=== PATIENT | female | born 1935 | race Caucasian/White ===

== ENCOUNTER → 2018-01-07 | Outpatient (CLI) | payer MEDICARE ==
[~2018-01-07] MED LIST: BIOTIN10000 MC1 PO; FLONASEALLERGY NS; LEXAPRO20 MG PO; MULTIPLE VITAMI1 CAP PO; NAMENDA 10MG TA10 MG PO; OMNICEF 300MG300 MG PO; PROTONIX 40MG T40 MG PO; SANCTURA XR60 MG PO; SINGULAIR 110 MG/TAB PO; TAMBOCOR 1100 MG/TAB PO; TOPROL XL 25MG25 MG PO; TYLENOL 500MG500 MG PO; ZYRTEC ALLERGY10 MG PO
[2018-01-07 20:34] LABS: COLLECTION METHOD CLEAN CATCH
[2018-01-07 20:41] LABS: MUCOUS Present /lpf; PH 5 (5-8); SQUAMOUS EPITHELIAL 0-2 /hpf; URINE APPEARANCE Cloudy; URINE BACTERIA Rare /hpf; URINE BILIRUBIN Negative (NEGATIVE); URINE BLOOD Negative (NEGATIVE); URINE COLOR Yellow; URINE GLUCOSE Negative (NEGATIVE); URINE KETONE Negative (NEGATIVE); URINE LEUKOCYTE ESTERASE 1+ (NEGATIVE); URINE NITRATE Negative (NEGATIVE); URINE PROTEIN(semi-quant) 2+ (NEGATIVE); URINE RBC 0-2 /hpf; URINE UROBILINOGEN Negative (NEGATIVE)
== END ==
LOC: ZCOL.LAB 20:22 → MC.RAD 02-03 13:40
PROVIDERS: Family Medicine
DX: R30.0 Dysuria (principal)

== ENCOUNTER 2018-01-09 09:01 | Emergency (ER) | payer MEDICARE, BC ==
[~2018-01-09] VITALS: Ht 170.2 cm; Wt 71.8 kg
[2018-01-09] MEDS ORDERED: BIOTIN10000 MC1 PO (09:17)
[2018-01-09] MEDS ORDERED: MULTIPLE VITAMI1 CAP PO (09:17)
[2018-01-09] MEDS ORDERED: OMNICEF 300MG300 MG PO (09:17)
[2018-01-09] MEDS ORDERED: TAMBOCOR 1100 MG/TAB PO (09:18)
[2018-01-09] MEDS ORDERED: LEXAPRO20 MG PO (09:18)
[2018-01-09] MEDS ORDERED: FLONASEALLERGY NS (09:19)
[2018-01-09] MEDS ORDERED: NAMENDA 10MG TA10 MG PO (09:19)
[2018-01-09] MEDS ORDERED: TOPROL XL 25MG25 MG PO (09:19)
[2018-01-09] MEDS ORDERED: SANCTURA XR60 MG PO (09:20)
[2018-01-09] MEDS ORDERED: SINGULAIR 110 MG/TAB PO (09:20)
[2018-01-09] MEDS ORDERED: PROTONIX 40MG T40 MG PO (09:20)
[2018-01-09] MEDS ORDERED: TYLENOL 500MG500 MG PO (09:29)
[2018-01-09] MEDS ORDERED: ZYRTEC ALLERGY10 MG PO (09:29)
[2018-01-09 09:39] LABS: BASO % 0.4 % (0.0-2.0); GRAN # 8.3 (1.4-6.5); GRAN % 88.2 % (42.2-75.2); HEMOGLOBIN 11.8 g/dl (12.5-16.0); LYMPH # 0.4 (1.2-3.4); LYMPH % 4.6 % (20.0-51.0); MEAN CELL VOLUME 96 fl (80.0-100.0); MEAN CORPUSCULAR HEMOGLOBIN 32 pg (27.0-31.0); MEAN CORPUSCULAR HGB CONC 33 g/dl (33.0-37.0); MEAN PLATELET VOLUME 9.7 fl (7.4-10.4); MONO # 0.6 (0.1-0.6); MONO % 6.4 % (1.7-9.3); PLATELET COUNT 157 K/mm3 (130-400); RED BLOOD COUNT 3.75 M/mm3 (4.10-5.30); REDCELL DISTRIBUTION WIDTH-CV 12.6 % (11.5-14.5)
[2018-01-09 09:47] LABS: BILIRUBIN,TOTAL 0.9 mg/dL (0.0-1.0); CALCIUM 8.7 mg/dL (8.4-10.2); CREATININE, serum 0.93 mg/dL (0.52-1.25); POTASSIUM 3.7 mmol/L (3.4-5.0); TOTAL PROTEIN 7.1 gm/dL (6.4-8.2)
[2018-01-09 09:49] LABS: HEMATOCRIT 35.9 % (37.0-47.0)
[2018-01-09 10:33] VITALS: TEMP 99.9
[2018-01-09 12:42] VITALS: BP 137/84; PULSE 79
== END 2018-01-09 12:42 | disposition home or self-care (01) ==
LOC: COL.ER 09:01
PROVIDERS: Family Medicine
DX: N39.0 Urinary tract infection, site not specified (principal); F03.90 Unspecified dementia, unspecified severity, without behavioral disturbance, psychotic disturbance, mood disturbance, and anxiety
CPT/HCPCS: J0696; J7030

== ENCOUNTER → 2018-01-27 | Outpatient (CLI) | payer MEDICARE, BC | LOC: COL.RAD 07:30 | DX: S22.070G Wedge compression fracture of T9-T10 vertebra, subsequent encounter for fracture with delayed healing (principal); M48.04 Spinal stenosis, thoracic region ==

== ENCOUNTER 2018-02-05 11:17 | Outpatient (CLI) | payer MEDICARE, BC ==
[~2018-02-05] VITALS: Ht 170.2 cm; Wt 54.9 kg
[2018-02-05] VITALS (8 sets, daily range): BP systolic 128–178; BP diastolic 64–85; PULSE 64–73; TEMP 98.5
[2018-02-05] MEDS ORDERED: CEPHALEXIN500 M1 PO (12:10)
[2018-02-05] MEDS ORDERED: CALCIUM-MAGNES1 EAC1 PO (12:13)
[2018-02-05] MEDS ORDERED: ULTRAM 50MG TAB50 MG PO (12:15)
== END 2018-02-05 17:58 | disposition home or self-care (01) ==
LOC: COL.CAR 11:17
DX: S22.080A Wedge compression fracture of T11-T12 vertebra, initial encounter for closed fracture (principal); Z90.710 Acquired absence of both cervix and uterus; Z96.642 Presence of left artificial hip joint; Z88.8 Allergy status to other drugs, medicaments and biological substances
CPT/HCPCS: J2250; J3010; J7120

== ENCOUNTER → 2018-03-16 | Emergency (ER) | payer MEDICARE, BC ==
[~2018-03-16] VITALS: Ht 160 cm; Wt 52.3 kg
[~2018-03-16] MED LIST changes: +CALCIUM-MAGNES1 EAC1 PO; +CEPHALEXIN500 M1 PO; +ULTRAM 50MG TAB50 MG PO
[2018-03-16 10:37] VITALS: TEMP 98
[2018-03-16 13:30] VITALS: BP 147/66; PULSE 85
== END ==
LOC: COL.ER 10:30
DX: S30.0XXA Contusion of lower back and pelvis, initial encounter (principal); F03.90 Unspecified dementia, unspecified severity, without behavioral disturbance, psychotic disturbance, mood disturbance, and anxiety; Z91.81 History of falling; Z79.51 Long term (current) use of inhaled steroids; W01.0XXA Fall on same level from slipping, tripping and stumbling without subsequent striking against object, initial encounter; Y92.129 Unspecified place in nursing home as the place of occurrence of the external cause; Y93.E1 Activity, personal bathing and showering

== ENCOUNTER 2019-09-13 15:54 | Inpatient (IN) | payer MEDICARE, BC ==
[~2019-09-13] VITALS: Ht 170.2 cm; Wt 58.5 kg
[2019-09-13 15:55] VITALS: BP 148/65; PULSE 71; TEMP 97.5
[2019-09-13] MEDS ORDERED: REMERON 15M15 MG/TA1 PO (16:05)
[2019-09-13] MEDS ORDERED: MYLANTA 150 ML150 M1 PO (16:05)
[2019-09-13] MEDS ORDERED: SEROQUEL 2525 MG/TAB PO (16:07)
[2019-09-13] MEDS ORDERED: GUAICON DMS PO (16:09)
[2019-09-13] MEDS ORDERED: TYLENOL 325MG325 MG PO (16:10)
[2019-09-13] MEDS ORDERED: TYLENOL SU650 MG/SUP RC (16:11)
[2019-09-13] MEDS ORDERED: TYLENOL 500MG500 MG PO (16:12)
[2019-09-13] MEDS ORDERED: DULCOLAX S10 MG/SUPP RC (16:13)
[2019-09-13] MEDS ORDERED: CETAPHIL COMPO480 ML TP (16:14)
[2019-09-13] MEDS ORDERED: IMODIUM A-D2 MG PO (16:17)
[2019-09-13] MEDS ORDERED: MIRALAX PA17 GM/Dose PO (16:17)
[2019-09-13] MEDS ORDERED: ASPERCREME1 EACH TP (16:18)
[2019-09-13] MEDS ORDERED: MILK OF MA400 MG/52 PO (16:19)
[2019-09-13 16:43] LABS: BASO % 0.5 % (0.0-2.0); EOS # 0.2 (0.0-0.7); EOS % 2.7 % (0-4.0); GRAN # 3.9 (1.4-6.5); GRAN % 68.9 % (42.2-75.2); HEMATOCRIT 37.3 % (37.0-47.0); HEMOGLOBIN 12.4 g/dl (12.5-16.0); LYMPH # 1.1 (1.2-3.4); LYMPH % 19.5 % (20.0-51.0); MEAN CELL VOLUME 96 fl (80.0-100.0); MEAN CORPUSCULAR HEMOGLOBIN 32 pg (27.0-31.0); MEAN CORPUSCULAR HGB CONC 33 g/dl (33.0-37.0); MONO # 0.5 (0.1-0.6); PLATELET COUNT 170 K/mm3 (130-400); RED BLOOD COUNT 3.87 M/mm3 (4.10-5.30); REDCELL DISTRIBUTION WIDTH-CV 12.6 % (11.5-14.5)
[2019-09-13 16:50] LABS: PROTHROMBIN TIME 11.3 SECONDS (9.7-12.8)
[2019-09-13 16:56] LABS: ALBUMIN 4.2 gm/dL (3.5-5.0); BILIRUBIN,TOTAL 0.6 mg/dL (0.0-1.0); CALCIUM 8.9 mg/dL (8.4-10.2); CREATININE, serum 0.87 (0.52-1.25); POTASSIUM 4.4 mmol/L (3.4-5.0); TOTAL PROTEIN 7.2 gm/dL (6.4-8.2)
[2019-09-13 17:03] LABS: PRE ALBUMIN 27.6 mg/dL (17.6-36.0)
--- NOTE | 2019-09-13 18:00 | NUR ---
16 MAORI STEVENSON CATHETER INSERTED VIA STERILE TECHNIQUE. CLOUDY, PALE YELLOW URINE RETURNED. UA COLLECTED AND SENT TO LAB. PERICARE PROVIDED. STAT LOCK TO LEFT LEG. TERENCE HOSE APPLIED TO LLE. SCD'S APPLIED TO BLE. POSITIVE PEDAL PULSES EQUAL BILATERALLY. CAP REFILL <3 SECONDS. CMS INTACT. IV FLUIDS INFUSING TO RIGHT WRIST IV VIA PUMP. CALL LIGHT WITHIN REACH. DINNER TRAY ORDERED. NO OTHER NEEDS AT THIS TIME.
--- NOTE | 2019-09-13 18:40 | NUR ---
ANESTHESIA PAGED AND NOTIFIED OF SURGICAL CONSULT.
--- NOTE | 2019-09-13 18:56 | NUR ---
REPORT GIVEN TO ASHELY TONEY.
[2019-09-13 19:09] LABS: COLLECTION METHOD CATHETER
[2019-09-13 19:28] LABS: BUDDING YEAST Present /hpf; MUCOUS Present /lpf; PH 7 (5-8); SQUAMOUS EPITHELIAL None Seen /hpf; URINE APPEARANCE Hazy; URINE BACTERIA Occasional /hpf; URINE BILIRUBIN Negative (NEGATIVE); URINE BLOOD Negative (NEGATIVE); URINE COLOR Yellow; URINE GLUCOSE Negative (NEGATIVE); URINE KETONE Negative (NEGATIVE); URINE LEUKOCYTE ESTERASE Trace (NEGATIVE); URINE NITRATE Positive (NEGATIVE); URINE PROTEIN(semi-quant) Negative (NEGATIVE); URINE UROBILINOGEN Negative (NEGATIVE)
[2019-09-13 20:00] VITALS: BP 141/81; PULSE 87; TEMP 97.8
--- NOTE | 2019-09-13 20:36 | NUR ---
Received report from ASHELY Leiva. Pt is currently lying in bed. Pt bed alarm has gone off serval time. Pt wants to get out of bed. Pt was asked if she has to have a bowel movement she stated no. Pt is confused. Pt was redirected and was informed that she has a catheter in place. Pt was also given her night medications and Tylenol at this time. Patient stated she's hurting when she moves her leg. Pt lungs sounds were clear, her heart rate was normal S1 and S2 sounds. Pt bowel sounds were hypoactive. Pt is now resting in bed and she was given a warm blanket for comfort. Pt has her call light within reach and will continue to monitor to make sure she not trying to exit her bed. Bed alarm is on at this time.
[2019-09-13 21:00] VITALS: BP 106/69; PULSE 78; TEMP 98.9
[2019-09-14] VITALS (14 sets, daily range): BP systolic 94–183; BP diastolic 62–112; PULSE 71–101; TEMP 97.5–98.9
--- NOTE | 2019-09-14 00:51 | NUR ---
Pt daughter called who is the pt DOPA and we were able to obtain the consent for surgery. Pt is currently sleeping in bed. Pt did wake up for vitals but went back to sleep.
--- NOTE | 2019-09-14 02:40 | NUR ---
Pt was beginning to try to get out of bed. Pt was also rubbing her hip and complainting of pain. Pt was given Tylenol and a small sip of water at this time. Pt is now lying in bed with call light within reach and bed in lowest position and alarm on.
[2019-09-14 06:24] LABS: HEMOGLOBIN 11.8 g/dl (12.5-16.0); MEAN CELL VOLUME 98 fl (80.0-100.0); MEAN CORPUSCULAR HEMOGLOBIN 32 pg (27.0-31.0); MEAN CORPUSCULAR HGB CONC 33 g/dl (33.0-37.0); MEAN PLATELET VOLUME 9.3 fl (7.4-10.4); PLATELET COUNT 146 K/mm3 (130-400); RED BLOOD COUNT 3.65 M/mm3 (4.10-5.30); REDCELL DISTRIBUTION WIDTH-CV 12.4 % (11.5-14.5)
[2019-09-14 06:32] LABS: CALCIUM 8.6 mg/dL (8.4-10.2); CREATININE, serum 0.75 (0.52-1.25); MAGNESIUM 2.2 mg/dL (1.6-2.3); POTASSIUM 4.1 mmol/L (3.4-5.0)
[2019-09-14 06:33] LABS: HEMATOCRIT 35.7 % (37.0-47.0)
--- NOTE | 2019-09-14 07:12 | NUR ---
Reported off to ASHELY Santos. Pt is lying in be with call light within reach and bed in lowest positon and alarm on.
--- NOTE | 2019-09-14 07:34 | NUR ---
REPORT FROM DAWNA LUND.
--- NOTE | 2019-09-14 09:00 | NUR ---
PT RESTING IN BED, PLAN ON SURGERY THIS AM. WITH DR. OSEI FOR HIP PINNING. CONSENT SIGNED ON CHART. PT RESTING QUIETLY AT THIS TIME.
--- NOTE | 2019-09-14 11:18 | NUR ---
PT TO SURGERY @ 1153.
--- NOTE | 2019-09-14 11:49 | NUR ---
Workers Compensation Claims Specialist contacted patient's daughter/SHAWNA Christie (ph#[phone]) to discuss discharge planning as patient has dementia. Per Shahnaz, patient lives at [facility] and has been there about two years. Patient sees Dr. Hernandez for primary care and uses a walker or wheelchair for ambulation. Patient does receive some assistance as needed with ADLS at [facility]. Shahnaz reports the plan is for patient to return to [facility]. STEFFANY contacted Jessica at [facility] who advised patient is from their special care unit at [facility]. Due to COVID 19 pandemic, patient will discharge to the [facility] for skilled care instead of skilled care at [place]. STEFFANY faxed referral to Jessica at [facility]. SW to continue to follow.
--- NOTE | 2019-09-14 12:52 | NUR ---
PT TO ROOM 326 PER BED WITH INOCENCIO LUND PACU@1200. PT IS DROWSEY BUT AROUSEABLE. DRESSING TO RIGHT HIP CDI WITH AQUACEL OVER INCISION. IV TO PUMP PER ORDERS.
--- NOTE | 2019-09-14 15:55 | NUR ---
PT RESTING QUIETLY AFTER ULTRAM. VSS IMPROVED.
--- NOTE | 2019-09-14 18:50 | NUR ---
report to Su LUND.
[2019-09-15] VITALS (7 sets, daily range): BP systolic 111–165; BP diastolic 31–103; PULSE 67–104; TEMP 97.6–103
--- NOTE | 2019-09-15 04:27 | NUR ---
Patient has rested well throughout the night. Albarran draining clear, yellow urine. Dressing to right hip clean, dry, and intact. Patient up to the bedside commode via 2 assist from staff. Patient then complained of a lot of pain to the right hip. PRN [place] given, as it wasn't time for Ultram yet, and this was effective for pain relief. Patient was reoriented frequently about where she was, and why she was here. Patient's daughter, Shahnaz, called for an update and this was provided for her. States she wants to talk with her in the morning. Vital signs stable. Will continue to monitor.
[2019-09-15 06:13] LABS: BASO % 0.3 % (0.0-2.0); EOS # 0.2 (0.0-0.7); EOS % 2.8 % (0-4.0); GRAN % 71.8 % (42.2-75.2); HEMOGLOBIN 11.6 g/dl (12.5-16.0); LYMPH # 1.2 (1.2-3.4); LYMPH % 17.5 % (20.0-51.0); MEAN CELL VOLUME 98 fl (80.0-100.0); MEAN CORPUSCULAR HEMOGLOBIN 32 pg (27.0-31.0); MEAN CORPUSCULAR HGB CONC 33 g/dl (33.0-37.0); MEAN PLATELET VOLUME 9.4 fl (7.4-10.4); MONO # 0.5 (0.1-0.6); MONO % 7.2 % (1.7-9.3); PLATELET COUNT 170 K/mm3 (130-400); RED BLOOD COUNT 3.59 M/mm3 (4.10-5.30); REDCELL DISTRIBUTION WIDTH-CV 12.3 % (11.5-14.5)
[2019-09-15 06:16] LABS: HEMATOCRIT 35.3 % (37.0-47.0)
[2019-09-15 06:27] LABS: CALCIUM 8.7 mg/dL (8.4-10.2); CREATININE, serum 0.63 (0.52-1.25); POTASSIUM 3.6 mmol/L (3.4-5.0)
--- NOTE | 2019-09-15 09:04 | NUR ---
PT UP WORKING WITH THERAPY AT THIS TIME. PT BASELINE CONFUSION FROM [facility].
--- NOTE | 2019-09-15 10:34 | NUR ---
Compressor Engineer contacted Jessica at [facility] and faxed updates. SW contacted patient's daughter, Shahnaz and left a message. Per Hospitalist, patient may be ready for discharge tomorrow. SW to continue to follow.
--- NOTE | 2019-09-15 12:04 | NUR ---
First visit from the hose builder. No needs right now.
--- NOTE | 2019-09-15 14:01 | NUR ---
RA SPO2 80% 3 LPM NC 91%
--- NOTE | 2019-09-15 17:22 | NUR ---
STEVENSON CATHETER DISCONTINUED THIS PM. PT TOLERATED WELL.
--- NOTE | 2019-09-15 19:00 | NUR ---
Received report from ASHELY Santos. Pt glenroynly lying in bed with her call light within reach and her bed in lowest position.
--- NOTE | 2019-09-15 20:27 | NUR ---
I was informed by the aide that the pt has a temp of 103. I went in to assess the pt and had the pt do the IS a couple of times. Temp did go down to 102.7 at this time. Pt was given Tylenol at this time. Will follow up to see if the temperature improves. Pt has her call light within reach and her bed is in lowest position.
--- NOTE | 2019-09-15 22:08 | NUR ---
Pt temperature was assessed at this time pt temperature was 99.4. Will continute to monitor pt. Pt is currently sleeping but woke up fine for me to do her temperature. Her call light is within reach and her bed is in lowest position and alarm is on.
[2019-09-16 01:11] VITALS: BP 124/60; PULSE 73; TEMP 97.6
[2019-09-16 04:24] VITALS: BP 139/78; PULSE 72; TEMP 97.6
[2019-09-16 06:05] LABS: BASO % 0.3 % (0.0-2.0); EOS # 0.1 (0.0-0.7); EOS % 1.8 % (0-4.0); GRAN # 4.6 (1.4-6.5); HEMOGLOBIN 10.1 g/dl (12.5-16.0); LYMPH # 0.6 (1.2-3.4); LYMPH % 10.2 % (20.0-51.0); MEAN CELL VOLUME 97 fl (80.0-100.0); MEAN CORPUSCULAR HEMOGLOBIN 32 pg (27.0-31.0); MEAN CORPUSCULAR HGB CONC 33 g/dl (33.0-37.0); MEAN PLATELET VOLUME 9.5 fl (7.4-10.4); MONO # 0.6 (0.1-0.6); MONO % 9.2 % (1.7-9.3); PLATELET COUNT 157 K/mm3 (130-400); RED BLOOD COUNT 3.15 M/mm3 (4.10-5.30); REDCELL DISTRIBUTION WIDTH-CV 12.3 % (11.5-14.5)
[2019-09-16 06:10] LABS: HEMATOCRIT 30.4 % (37.0-47.0)
[2019-09-16 06:20] LABS: CALCIUM 8.5 mg/dL (8.4-10.2); CREATININE, serum 0.66 (0.52-1.25); POTASSIUM 3.4 mmol/L (3.4-5.0)
[2019-09-16 07:34] VITALS: BP 139/67; PULSE 67; TEMP 98.2
--- NOTE | 2019-09-16 07:35 | NUR ---
Reported off to ASHELY Bhandari. Pt slept well during the night pt had one time where she was incontinent. Pt was cleaned using personal cleaning wipes. A breif was put on her at this time. Pt had no redness on her bottom. Pt was awake and getting ready for her breakfast at this time. Pt has her call light within reach and her bed is in lowest position.
[2019-09-16] MEDS ORDERED: ASPI325T6 PO (08:05)
[2019-09-16] MEDS ORDERED: OSCAL 500 TAB500 MG PO (08:07)
[2019-09-16] MEDS ORDERED: VITAMIN C500 MG PO (08:07)
[2019-09-16] MEDS ORDERED: DUO-KAPS1 CAP PO (08:08)
[2019-09-16] MEDS ORDERED: ULTRAM 50MG TAB50 MG PO (08:10)
[2019-09-16] MEDS ORDERED: OMNICEF 300MG300 MG PO (09:06)
[2019-09-16] MEDS ORDERED: DIFLUCAN 100MG100 MG PO (09:07)
[2019-09-16 11:47] VITALS: BP 157/84; BP 167/94; PULSE 93; TEMP 97.5
--- NOTE | 2019-09-16 16:10 | NUR ---
Command And Control Systems Integrator collaborated with MARCELLA Boggs who advised patient will not discharge today as she had a fever and new oxygen needs. Patient to be tested for COVID 19. SW contacted Jessica at [facility] and patient's daughter Shahnaz to provide update. SW to continue to follow.
[2019-09-16 16:40] VITALS: BP 146/76; PULSE 80; TEMP 97.8
[2019-09-16 19:32] VITALS: BP 100/62; PULSE 97; TEMP 98.6
--- NOTE | 2019-09-16 20:00 | NUR ---
Pt currently lying in bed. At the beginning of the shift pt was trying to exit the bed. Pt was telling us that she needed to go to [facility] because she had choir practice. Pt was very confused and it took a while to let the pt know that she was in the hospital in [place]. Pt lungs sounds did have some wheezing in the lower lobes. Pt continued to cough and after coughing they did shound clear. Pt heart sounds were normal S1 and S2 sounds. Pt had two IV sites on her right wrist, the IV site that was dated for yesterday was patent, but the IV in the lower forearm was removed at this time because it was not patent. So now pt currently has one IV site on her right forearm. Pt has a small skin tear on the front of her left leg that has a bandaid on it. Bandaid is clean, dry, and intact. Pt has her call light within reach and her bed is in lowest posiion with alarm on.
[2019-09-17 00:21] VITALS: BP 141/86; PULSE 94; TEMP 98.8
--- NOTE | 2019-09-17 01:33 | NUR ---
Pt has been trying to exit her bed. Pt did state that she was having pain in her leg. Pt was given Tylenol at this time. 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 Pt was getting up set because she couldn't get to the kitchen. Pt is safely in bed. Pt was repositioned at this time. Pt did ambulate to the bed side commode earlier. Pt has her call light within reach and her bed is in lowest positon.
[2019-09-17 04:14] VITALS: BP 110/92; PULSE 76; TEMP 98.6
--- NOTE | 2019-09-17 07:00 | NUR ---
Reported off to ASHELY Santos. Pt is currently lying in bed sleeping. Pt has her call light within reach and bed is in lowest position, alarm is on.
--- NOTE | 2019-09-17 07:28 | NUR ---
REPORT FROM DAWNA LUND.
[2019-09-17 08:05] LABS: BASO % 0.5 % (0.0-2.0); EOS # 0.2 (0.0-0.7); EOS % 3.2 % (0-4.0); GRAN % 71.9 % (42.2-75.2); LYMPH # 0.8 (1.2-3.4); LYMPH % 14.4 % (20.0-51.0); MEAN CELL VOLUME 96 fl (80.0-100.0); MEAN CORPUSCULAR HGB CONC 34 g/dl (33.0-37.0); MEAN PLATELET VOLUME 9.4 fl (7.4-10.4); MONO # 0.5 (0.1-0.6); MONO % 9.5 % (1.7-9.3); PLATELET COUNT 168 K/mm3 (130-400); REDCELL DISTRIBUTION WIDTH-CV 12.4 % (11.5-14.5)
[2019-09-17 08:08] LABS: HEMATOCRIT 28.9 % (37.0-47.0); HEMOGLOBIN 9.7 g/dl (12.5-16.0); MEAN CORPUSCULAR HEMOGLOBIN 32 pg (27.0-31.0)
[2019-09-17 08:10] VITALS: BP 149/56; PULSE 72; TEMP 97.9
[2019-09-17 08:11] LABS: CALCIUM 8.5 mg/dL (8.4-10.2); CREATININE, serum 0.66 (0.52-1.25); POTASSIUM 3.6 mmol/L (3.4-5.0)
[2019-09-17 11:50] VITALS: BP 128/66; PULSE 70; TEMP 98.7
--- NOTE | 2019-09-17 14:17 | NUR ---
The patient's COVID results are still pending. The patient is to tentatively discharge back to [facility] this weekend, once results are in. STEFFANY contacted and updated the patient's daughter, Shahnaz. Shahnaz verbalized understanding and is agreeable to this. STEFFANY contacted and faxed updates to Jessica at [facility]. SW to continue to follow.
[2019-09-17 16:05] VITALS: BP 136/66; PULSE 70; TEMP 99.1
[2019-09-17 19:50] VITALS: BP 154/68; PULSE 76; TEMP 98.4
[2019-09-18] VITALS (8 sets, daily range): BP systolic 85–146; BP diastolic 52–85; PULSE 67–88; TEMP 98–99.1
--- NOTE | 2019-09-18 05:50 | NUR ---
Patient is at confused at baseline. Aquacell dressing to right hip clean, dry in tact. Patient was able to ambulate into restrooom several times this shift. Patient was afebrile this shift. Katharinenet doesn't keep nasal cannula in nose, but sats remain at uper 80s to 90% on room air. [facility] once covid test comes back.
--- NOTE | 2019-09-18 08:00 | NUR ---
Patient in bed resting. Alert and oriented to self. Denies pain at this time. Assisted patient to sit up for breakfast. Aquacel to right hip is CDI. Jamie hose and SCD to BLE. Pedal pulses intact. Patient on 2L of O2 via NC. Denies further needs at this time.
[2019-09-18 08:45] LABS: CALCIUM 8.4 mg/dL (8.4-10.2); CREATININE, serum 0.59 (0.52-1.25); POTASSIUM 3.5 mmol/L (3.4-5.0)
[2019-09-18 08:47] LABS: BASO % 0.7 % (0.0-2.0); EOS # 0.2 (0.0-0.7); EOS % 3.5 % (0-4.0); GRAN # 3.2 (1.4-6.5); GRAN % 70.2 % (42.2-75.2); LYMPH # 0.7 (1.2-3.4); MEAN CELL VOLUME 96 fl (80.0-100.0); MEAN CORPUSCULAR HGB CONC 33 g/dl (33.0-37.0); MEAN PLATELET VOLUME 9.5 fl (7.4-10.4); MONO # 0.5 (0.1-0.6); MONO % 10.2 % (1.7-9.3); PLATELET COUNT 195 K/mm3 (130-400); RED BLOOD COUNT 2.91 M/mm3 (4.10-5.30); REDCELL DISTRIBUTION WIDTH-CV 12.3 % (11.5-14.5)
[2019-09-18 08:52] LABS: HEMOGLOBIN 9.3 g/dl (12.5-16.0); MEAN CORPUSCULAR HEMOGLOBIN 32 pg (27.0-31.0)
--- NOTE | 2019-09-18 09:00 | NUR ---
Patient sitting up in bed eating breakfast independently.
--- NOTE | 2019-09-18 15:42 | NUR ---
STEFFANY faxed over COVID results and updates for 09/17/2019-09/18/2019 to [facility].
--- NOTE | 2019-09-18 17:21 | NUR ---
Patient up to recliner, x1 stand by assist with walker. Denies further needs a this time.
--- NOTE | 2019-09-18 18:04 | NUR ---
Patient has done well throughout the day. Napping on and off. States she feels tired and was not able to sleep well last night. Currently up in recliner. Jamie olsen maintained to BLE. SCDs throughout the day when in bed. Denies further needs at this time. Denies pain at this time. Will report off to shift leader.
--- NOTE | 2019-09-18 19:57 | NUR ---
Report received. Assumed care for sap hana architect. A&Ox to person/place but conversation very confused. Assessment complete. VS have been stable. Denies nasuea. States she gets a "little winded" when ambulating but no shortness of breath at rest. Rating pain 4/10 to right hip-described as intermittent ache. States she does not need pain medication at this time. Fresh ice pack applied to site but immediately removed stating it was to cold and causes more pain. Right hip dressing CDI aleah. Pillow under for support. Ambulated to bathroom with one assist. Ambulation has greatly improved from last sap hana architect. TEDs/SCDs bilat. Call light in reach/bed alarm on. Will monitor.
[2019-09-19 03:40] VITALS: BP 95/80; PULSE 72; TEMP 97.6
--- NOTE | 2019-09-19 08:00 | NUR ---
Patient resting in bed at this time. Patient rouses easily and is alert and plesently confused per her baseline while awake. Patient denies pain or needs at this time, call light within reach.
--- NOTE | 2019-09-19 09:23 | NUR ---
STEFFANY made away of patient statues. DC orders prepared and faxed to [facility] . Awaiting transport time to [facility].
[2019-09-19 09:30] VITALS: BP 152/61; PULSE 88; TEMP 98.3
--- NOTE | 2019-09-19 11:50 | NUR ---
Discharge report called to recieving facility. INT removed, catheter intact, hemostasis achieved. Patient dressed and belongings gathered, patient transferred to recieving facility transportation.
== END 2019-09-19 12:20 | DRG 480 ==
LOC: SURG 15:54
PROVIDERS: Nurse Practitioner Family; Orthopaedic Surgery; Physician Assistant; ADMIT Hospitalist
PROC: 0QS834Z Reposition Right Femoral Shaft with Internal Fixation Device, Percutaneous Approach (ICD-10-PCS; principal; 2019-09-14 10:00)
DX: S72.001A Fracture of unspecified part of neck of right femur, initial encounter for closed fracture (principal); J96.01 Acute respiratory failure with hypoxia; J69.0 Pneumonitis due to inhalation of food and vomit; E87.1 Hypo-osmolality and hyponatremia; N39.0 Urinary tract infection, site not specified; F03.90 Unspecified dementia, unspecified severity, without behavioral disturbance, psychotic disturbance, mood disturbance, and anxiety; K21.9 Gastro-esophageal reflux disease without esophagitis; G89.29 Other chronic pain; M54.9 Dorsalgia, unspecified; F32.9 Major depressive disorder, single episode, unspecified; F41.9 Anxiety disorder, unspecified; D64.9 Anemia, unspecified; M19.90 Unspecified osteoarthritis, unspecified site; Z96.642 Presence of left artificial hip joint; K59.00 Constipation, unspecified; I48.0 Paroxysmal atrial fibrillation; Z66 Do not resuscitate; W19.XXXA Unspecified fall, initial encounter; B96.20 Unspecified Escherichia coli [E. coli] as the cause of diseases classified elsewhere; R50.9 Fever, unspecified; Z20.828 Contact with and (suspected) exposure to other viral communicable diseases; Z90.89 Acquired absence of other organs; Z90.710 Acquired absence of both cervix and uterus
CPT/HCPCS: 99222-AI; 99232-AI; 99233-AI; 99239; A9284; C1713; J0690; J0696; J2250; J2270; J2704; J2795; J7030; J7121

== ENCOUNTER 2019-12-19 11:48 | Emergency (ER) | payer MEDICARE, BC ==
[~2019-12-19] VITALS: Ht 170.2 cm; Wt 59.1 kg
[~2019-12-19 11:48] MED LIST changes: +ASPERCREME1 EACH TP; +ASPI325T6 PO; +CETAPHIL COMPO480 ML TP; +DIFLUCAN 100MG100 MG PO; +DULCOLAX S10 MG/SUPP RC; +DUO-KAPS1 CAP PO; +GUAICON DMS PO; +IMODIUM A-D2 MG PO; +MILK OF MA400 MG/52 PO; +MIRALAX PA17 GM/Dose PO; +MYLANTA 150 ML150 M1 PO; +OSCAL 500 TAB500 MG PO; +REMERON 15M15 MG/TA1 PO; +SEROQUEL 2525 MG/TAB PO; +TYLENOL 325MG325 MG PO; +TYLENOL SU650 MG/SUP RC; +VITAMIN C500 MG PO
[2019-12-19 11:49] VITALS: TEMP 98.3
[2019-12-19 12:18] LABS: BASO % 0.7 % (0.0-2.0); EOS # 0.1 (0.0-0.7); EOS % 1.6 % (0-4.0); GRAN # 2.9 (1.4-6.5); GRAN % 67.4 % (42.2-75.2); HEMATOCRIT 39.1 % (37.0-47.0); HEMOGLOBIN 12.6 g/dl (12.5-16.0); LYMPH % 23.3 % (20.0-51.0); MEAN CELL VOLUME 100 fl (80.0-100.0); MEAN CORPUSCULAR HEMOGLOBIN 32 pg (27.0-31.0); MEAN CORPUSCULAR HGB CONC 32 g/dl (33.0-37.0); MEAN PLATELET VOLUME 9.4 fl (7.4-10.4); MONO # 0.3 (0.1-0.6); MONO % 6.8 % (1.7-9.3); PLATELET COUNT 189 K/mm3 (130-400); RED BLOOD COUNT 3.93 M/mm3 (4.10-5.30); REDCELL DISTRIBUTION WIDTH-CV 12.4 % (11.5-14.5)
[2019-12-19 12:25] LABS: ALBUMIN 4.4 gm/dL (3.5-5.0); BILIRUBIN,TOTAL 0.6 mg/dL (0.0-1.0); CALCIUM 9.4 mg/dL (8.4-10.2); CREATININE, serum 0.72 (0.52-1.25); POTASSIUM 4.3 mmol/L (3.4-5.0); TOTAL PROTEIN 7.6 gm/dL (6.4-8.2)
[2019-12-19] MEDS ORDERED: ASPERCREME1 EACH TP (12:56)
[2019-12-19] MEDS ORDERED: NORCO 325 MG-51 TAB PO (13:09)
[2019-12-19 13:47] VITALS: BP 129/81; PULSE 66
== END 2019-12-19 14:39 | disposition home or self-care (01) ==
LOC: COL.ER 11:48
PROVIDERS: Emergency Medicine
DX: S09.90XA Unspecified injury of head, initial encounter (principal); S00.81XA Abrasion of other part of head, initial encounter; J98.11 Atelectasis; G30.9 Alzheimer's disease, unspecified; F02.80 Dementia in other diseases classified elsewhere, unspecified severity, without behavioral disturbance, psychotic disturbance, mood disturbance, and anxiety; Z88.6 Allergy status to analgesic agent; W19.XXXA Unspecified fall, initial encounter; Y92.129 Unspecified place in nursing home as the place of occurrence of the external cause

== ENCOUNTER → 2020-03-07 | Outpatient (CLI) | payer MEDICARE, BC ==
[~2020-03-07] MED LIST changes: +NORCO 325 MG-51 TAB PO
== END ==
LOC: COL.CARD 08:30
DX: R55 Syncope and collapse (principal)

== ENCOUNTER 2020-04-04 14:07 | Emergency (ER) | payer MEDICARE, BC ==
[~2020-04-04] VITALS: Ht 162.6 cm; Wt 59.1 kg
[2020-04-04 14:10] VITALS: TEMP 99.1
[2020-04-04 15:12] LABS: BASO % 0.7 % (0.0-2.0); EOS # 0.1 (0.0-0.7); EOS % 1.3 % (0-4.0); GRAN # 3.1 (1.4-6.5); GRAN % 67.6 % (42.2-75.2); HEMOGLOBIN 11.6 g/dl (12.5-16.0); LYMPH % 22.5 % (20.0-51.0); MEAN CELL VOLUME 96 fl (80.0-100.0); MEAN CORPUSCULAR HEMOGLOBIN 33 pg (27.0-31.0); MEAN CORPUSCULAR HGB CONC 34 g/dl (33.0-37.0); MEAN PLATELET VOLUME 8.8 fl (7.4-10.4); MONO # 0.4 (0.1-0.6); MONO % 7.7 % (1.7-9.3); PLATELET COUNT 188 K/mm3 (130-400); RED BLOOD COUNT 3.54 M/mm3 (4.10-5.30); REDCELL DISTRIBUTION WIDTH-CV 12.2 % (11.5-14.5)
[2020-04-04 15:17] LABS: PROTHROMBIN TIME 11.4 SECONDS (9.7-12.8)
[2020-04-04 15:21] LABS: HEMATOCRIT 34.1 % (37.0-47.0)
[2020-04-04 16:27] VITALS: BP 145/92; PULSE 79
== END 2020-04-04 16:27 | disposition home or self-care (01) ==
LOC: COL.ER 14:07
PROVIDERS: Physician Assistant
DX: S01.01XA Laceration without foreign body of scalp, initial encounter (principal); S50.02XA Contusion of left elbow, initial encounter; I10 Essential (primary) hypertension; F32.9 Major depressive disorder, single episode, unspecified; F41.9 Anxiety disorder, unspecified; K21.9 Gastro-esophageal reflux disease without esophagitis; Z90.89 Acquired absence of other organs; Z90.710 Acquired absence of both cervix and uterus; W01.198A Fall on same level from slipping, tripping and stumbling with subsequent striking against other object, initial encounter
CPT/HCPCS: J3010

== ENCOUNTER 2020-06-23 15:37 | Inpatient (IN) | payer MEDICARE, BC ==
[~2020-06-23] VITALS: Ht 162.6 cm; Wt 59.3 kg
[2020-06-23 17:16] LABS: HEMOGLOBIN 10.9 g/dl (12.5-16.0); MEAN CELL VOLUME 102 fl (80.0-100.0); MEAN CORPUSCULAR HEMOGLOBIN 33 pg (27.0-31.0); MEAN CORPUSCULAR HGB CONC 32 g/dl (33.0-37.0); MEAN PLATELET VOLUME 9.5 fl (7.4-10.4); PLATELET COUNT 192 K/mm3 (130-400); RED BLOOD COUNT 3.32 M/mm3 (4.10-5.30); REDCELL DISTRIBUTION WIDTH-CV 12.6 % (11.5-14.5)
[2020-06-23 17:25] LABS: ALANINE AMINOTRANSFERASE 16 U/L (4-34); ALBUMIN 3.7 gm/dL (3.5-5.0); ALKALINE PHOSPHATASE 84 U/L (50-136); ANION GAP 6 mmol/L (7-16); AST,SGOT 23 U/L (15-37); BILIRUBIN,TOTAL 0.7 mg/dL (0.0-1.0); BLOOD UREA NITROGEN 21 mg/dL (7-17); CALCIUM 8.6 mg/dL (8.4-10.2); CARBON DIOXIDE 29 mmol/L (22-30); CHLORIDE 100 mmol/L (98-107); CREATININE, serum 0.88 (0.52-1.25); GLUCOSE 102 mg/dL (74-106); POTASSIUM 4.1 mmol/L (3.4-5.0); SODIUM 136 mmol/L (137-145); TOTAL PROTEIN 6.6 gm/dL (6.4-8.2)
[2020-06-23 17:37] LABS: TROPONIN-I < 0.012 ng/mL (0.000-0.035)
[2020-06-23 17:42] LABS: COLLECTION METHOD CLEAN CATCH
[2020-06-23 17:52] LABS: AMORPHOUS CRYSTAL Present /uL; MUCOUS Present /lpf; PH 6 (5-8); SQUAMOUS EPITHELIAL None Seen /hpf; URINE APPEARANCE Cloudy; URINE BACTERIA Rare /hpf; URINE BILIRUBIN Negative (NEGATIVE); URINE BLOOD Negative (NEGATIVE); URINE COLOR Amber; URINE GLUCOSE Negative (NEGATIVE); URINE KETONE Negative (NEGATIVE); URINE LEUKOCYTE ESTERASE Negative (NEGATIVE); URINE NITRATE Negative (NEGATIVE); URINE PROTEIN(semi-quant) 2+ (NEGATIVE)
[2020-06-23 17:59] LABS: BAND 2 % (0-10); EOSINOPHIL 1 % (0-4); LYMPHOCYTE 6 % (20.0-51.0); NEUTROPHILS 88 % (42.0-75.2)
[2020-06-23 18:02] LABS: HYPOCHROMIA 1+; PLATELET ESTIMATE NORMAL (NORMAL)
[2020-06-23 19:58] LABS: ARTERIAL BLD GAS O2 SATURATION 88.6 % (92-100); ARTERIAL BLD GAS TCO2 CT 18.5; ARTERIAL BLOOD GAS BASE EXCESS -4.7 (-2-2); ARTERIAL BLOOD GAS HCO3 17.8 meq/L (22-26); ARTERIAL BLOOD GAS pH 7.51 (7.35-7.45)
[2020-06-23 20:00] LABS: ARTERIAL BLOOD GAS PCO2 22.8 mmHg (35-45); ARTERIAL BLOOD GAS PO2 48.1 mmHg (80-100)
[2020-06-23] MEDS ORDERED: TYLENOL 325MG325 MG PO (23:40)
[2020-06-23] MEDS ORDERED: REMERON 15M15 MG/TA1 PO (23:40)
[2020-06-23 23:57] VITALS: O2SAT 100
[2020-06-23 23:58] VITALS: O2SAT 100
[2020-06-24] VITALS (899 sets, daily range): BP systolic 92–152; BP diastolic 49–99; PULSE 53–86; TEMP 98.1–98.8; O2SAT 67–100
[2020-06-24 00:22] LABS: INR 1.2 (0.8-3.0); PROTHROMBIN TIME 13.8 SECONDS (9.7-12.8)
[2020-06-24 00:42] LABS: ARTERIAL BLD GAS O2 SATURATION 99.8 % (92-100); ARTERIAL BLD GAS TCO2 CT 27.1; ARTERIAL BLOOD GAS BASE EXCESS 2.7 (-2-2); ARTERIAL BLOOD GAS PCO2 35.4 mmHg (35-45); ARTERIAL BLOOD GAS pH 7.48 (7.35-7.45)
--- NOTE | 2020-06-24 02:19 | NUR ---
Patient arrived to the ICU at midnight. She was stable on her vent with slighly low blood pressure. Her blood pressure was trending down and I called Kandis CHUN when it was 96/48. She reccomended a 500 ml/hr fluid bolus x2. The patient is recieving the first 500 and blood pressure is currently 126/54. She has propofol and fentanyl running. Antibiotics has already been started. RSV and urine specimens were sent to lab. She is still being treated as a PUI. She is a DNR. OG tube is hooked to low intermittant suction. Dr Davi Sahu intercomed in and I gave him a quick update. His orders will be put in the patients chart.
[2020-06-24 04:44] LABS: ARTERIAL BLD GAS O2 SATURATION 95.3 % (92-100); ARTERIAL BLD GAS TCO2 CT 24.9; ARTERIAL BLOOD GAS BASE EXCESS -0.9 (-2-2); ARTERIAL BLOOD GAS HCO3 23.7 meq/L (22-26); ARTERIAL BLOOD GAS PO2 77.1 mmHg (80-100)
[2020-06-24 04:54] LABS: BASO % 0.2 % (0.0-2.0); EOS % 0.2 % (0-4.0); GRAN % 86.1 % (42.2-75.2); LYMPH # 0.6 (1.2-3.4); MEAN CELL VOLUME 99 fl (80.0-100.0); MEAN CORPUSCULAR HGB CONC 32 g/dl (33.0-37.0); MEAN PLATELET VOLUME 9.1 fl (7.4-10.4); MONO # 0.7 (0.1-0.6); MONO % 6.6 % (1.7-9.3); PLATELET COUNT 159 K/mm3 (130-400); RED BLOOD COUNT 2.88 M/mm3 (4.10-5.30); REDCELL DISTRIBUTION WIDTH-CV 12.7 % (11.5-14.5)
[2020-06-24 04:55] LABS: HEMATOCRIT 28.5 % (37.0-47.0); HEMOGLOBIN 9.2 g/dl (12.5-16.0); MEAN CORPUSCULAR HEMOGLOBIN 32 pg (27.0-31.0)
[2020-06-24 05:04] LABS: CALCIUM 7.4 mg/dL (8.4-10.2); CREATININE, serum 0.66 (0.52-1.25); MAGNESIUM 1.9 mg/dL (1.6-2.3); PHOSPHOROUS 2.5 mg/dL (2.5-4.5); POTASSIUM 3.5 mmol/L (3.4-5.0)
--- NOTE | 2020-06-24 06:52 | NUR ---
VENT CHARTING DOCUMENTED 0035 WAS PERFORMED AT 0335.
--- NOTE | 2020-06-24 08:30 | NUR ---
Recieved report from Krys LUND. Lines and tubes verified with first entry to room after report. Dr. Vang here to see pt. care plan reviewed with DR. Vang. New orders recieved and discussed.
--- NOTE | 2020-06-24 11:29 | NUR ---
Demand Planning Manager stopped through ICU and patient was airborne precaution and on ventilator so nothing needed at this time.
--- NOTE | 2020-06-24 11:30 | NUR ---
daughter Shahnaz called. Update given. Questions answered. Allowed Shahnaz to talk to her mother on speaker phone in the room.
--- NOTE | 2020-06-24 13:30 | NUR ---
Son called to speak with patient at this time. Allowed Son to talk to Mother over speakerphone. Reiterated that he could talk to her, but she would not be able to respond or talk back due to being on the ventilator.
--- NOTE | 2020-06-24 13:33 | NUR ---
STEFFANY spoke with SHAWNA Flores over the phone to conduct intake evaluation. Patient lives with daughter Brooks (P#[phone]) in [place]. Patient's son Thierry Chaudhry (P#[phone]) is patient's alternate DPOA-HC. Patient requires assistance with ADLS, and brooks hires CMAs/CNAs through private pay to assist in caregiving. Patient uses a walker for mobility presently. Patient's PCP is Dr Hernandez, and she uses [facility] for medications. Brooks reports that plan is for patient to return home with her upon discharge and resume care. Brooks confirmed understanding that this may change if patient's needs increase, and she is accepting of this. Brooks denies questions or concerns for SW at this time. SHAWNA asked STEFFANY to relay to nursing staff that patient requires regular reassurance and reorientation to stay calm. This was relayed to nursing staff. SHAWNA requested that she and her brother be able to call daily and let their mother hear their voices. STEFFANY relayed request to staff. Social work will continue to follow as needs progress.
[2020-06-25] VITALS (513 sets, daily range): BP systolic 115–163; BP diastolic 66–80; PULSE 47–78; TEMP 97.4–98.8; O2SAT 56–100
[2020-06-25 04:11] LABS: ARTERIAL BLD GAS O2 SATURATION 97.2 % (92-100); ARTERIAL BLD GAS TCO2 CT 22.3; ARTERIAL BLOOD GAS BASE EXCESS -5.3 (-2-2); ARTERIAL BLOOD GAS HCO3 20.9 meq/L (22-26); ARTERIAL BLOOD GAS PCO2 43.9 mmHg (35-45); ARTERIAL BLOOD GAS PO2 103.7 mmHg (80-100)
[2020-06-25 05:00] LABS: GRAN % 88.8 % (42.2-75.2); LYMPH # 0.2 (1.2-3.4); LYMPH % 3.8 % (20.0-51.0); MEAN CELL VOLUME 97 fl (80.0-100.0); MEAN CORPUSCULAR HGB CONC 33 g/dl (33.0-37.0); MEAN PLATELET VOLUME 9.4 fl (7.4-10.4); MONO # 0.3 (0.1-0.6); MONO % 6.7 % (1.7-9.3); PLATELET COUNT 161 K/mm3 (130-400); RED BLOOD COUNT 2.81 M/mm3 (4.10-5.30); REDCELL DISTRIBUTION WIDTH-CV 12.5 % (11.5-14.5)
[2020-06-25 05:01] LABS: HEMATOCRIT 27.2 % (37.0-47.0); HEMOGLOBIN 8.9 g/dl (12.5-16.0); MEAN CORPUSCULAR HEMOGLOBIN 32 pg (27.0-31.0)
[2020-06-25 05:11] LABS: CALCIUM 7.6 mg/dL (8.4-10.2); CREATININE, serum 0.54 (0.52-1.25); MAGNESIUM 2.3 mg/dL (1.6-2.3); PHOSPHOROUS 2.1 mg/dL (2.5-4.5); POTASSIUM 3.4 mmol/L (3.4-5.0)
--- NOTE | 2020-06-25 07:20 | NUR ---
RECEIVED REPORT FROM ASHELY AMBROCIO. PT RESTING EASILY ON CURRENT VENT SETTINGS: TV 400, PEEP 5, FIO2 30%, RR 18. FC PATENT AND DRAINING TO GRAVITY. VSS. INTERACTIVE PRODUCER IN PLACE. OGT IN PLACE WITH TF INFUSING AT 30 ML/HR. SEE GTT FLOWSHEET. PT OPENS EYES AND LOOKS AROUND WHEN SPOKEN TO.
--- NOTE | 2020-06-25 08:17 | NUR ---
RESIDUAL 37ML. TF INCREASED TO 45 ML/HR PER ORDERS.
[2020-06-25 14:25] LABS: ARTERIAL BLD GAS O2 SATURATION 96.9 % (92-100); ARTERIAL BLD GAS TCO2 CT 22.5; ARTERIAL BLOOD GAS BASE EXCESS -0.1 (-2-2); ARTERIAL BLOOD GAS HCO3 21.7 meq/L (22-26); ARTERIAL BLOOD GAS PCO2 27.1 mmHg (35-45); ARTERIAL BLOOD GAS PO2 81.9 mmHg (80-100); ARTERIAL BLOOD GAS pH 7.52 (7.35-7.45)
--- NOTE | 2020-06-25 15:05 | NUR ---
NOTIFIED DR KEITH ABOUT COVID PCR NEGATIVE. PHYSICIAN STATES OK TO DC PRECAUTIONS.
[2020-06-26] VITALS (715 sets, daily range): BP systolic 107–132; BP diastolic 48–60; PULSE 65–79; TEMP 97.5–98.5; O2SAT 84–100
[2020-06-26 05:02] LABS: ARTERIAL BLD GAS O2 SATURATION 95.7 % (92-100); ARTERIAL BLD GAS TCO2 CT 25.6; ARTERIAL BLOOD GAS BASE EXCESS 1.1 (-2-2); ARTERIAL BLOOD GAS HCO3 24.5 meq/L (22-26); ARTERIAL BLOOD GAS PCO2 34.5 mmHg (35-45); ARTERIAL BLOOD GAS PO2 75.2 mmHg (80-100); ARTERIAL BLOOD GAS pH 7.47 (7.35-7.45)
[2020-06-26 05:25] LABS: BASO % 0.1 % (0.0-2.0); GRAN # 7.9 (1.4-6.5); GRAN % 89.1 % (42.2-75.2); LYMPH # 0.2 (1.2-3.4); LYMPH % 2.7 % (20.0-51.0); MEAN CELL VOLUME 98 fl (80.0-100.0); MEAN CORPUSCULAR HGB CONC 33 g/dl (33.0-37.0); MEAN PLATELET VOLUME 9.3 fl (7.4-10.4); MONO # 0.6 (0.1-0.6); MONO % 6.8 % (1.7-9.3); PLATELET COUNT 199 K/mm3 (130-400); REDCELL DISTRIBUTION WIDTH-CV 12.9 % (11.5-14.5)
[2020-06-26 05:27] LABS: HEMATOCRIT 27.3 % (37.0-47.0); HEMOGLOBIN 8.9 g/dl (12.5-16.0); MEAN CORPUSCULAR HEMOGLOBIN 32 pg (27.0-31.0)
[2020-06-26 05:38] LABS: CALCIUM 7.7 mg/dL (8.4-10.2); CREATININE, serum 0.63 (0.52-1.25); MAGNESIUM 2.4 mg/dL (1.6-2.3); PHOSPHOROUS 2.5 mg/dL (2.5-4.5); POTASSIUM 4.2 mmol/L (3.4-5.0)
[2020-06-26 05:46] LABS: PRE ALBUMIN 12.6 mg/dL (17.6-36.0)
--- NOTE | 2020-06-26 06:30 | NUR ---
Patient was very agitated this morining during oral care, she had an otherwise very peaceful and uneventful night. The propofol remained at 30 and fentanyl at 75. Since she was very awake and even sitting completely up and agitated we decided to do the breathing trials then and there. RT Annetta said the patients volumes were satisfactory but she wasn't iniating enough breaths, it was around 9 or 10 breaths a minute. I then decided to lower the sedation by half as the patient was calming from her agitation but she remained 9 or 10 breaths a minute. She is resting now, her vitals are stable.
--- NOTE | 2020-06-26 19:14 | NUR ---
Report given to ASHELY Wiggins. Care relinquished at this time.
--- NOTE | 2020-06-26 19:34 | NUR ---
Received bedside report from ASHELY Smith. All medications verified and all questions answered. Patient on ventilator, review ventilator settings with day shift RN. VSS. Will resume care at this time.
[2020-06-26 20:37] LABS: ARTERIAL BLOOD GAS PCO2 39.7 mmHg (35-45); ARTERIAL BLOOD GAS pH 7.43 (7.35-7.45)
[2020-06-26 20:38] LABS: ARTERIAL BLD GAS O2 SATURATION 95.4 % (92-100); ARTERIAL BLOOD GAS BASE EXCESS 1.5 (-2-2); ARTERIAL BLOOD GAS HCO3 25.8 meq/L (22-26); ARTERIAL BLOOD GAS PO2 77.1 mmHg (80-100)
[2020-06-27] VITALS (556 sets, daily range): BP systolic 126–158; BP diastolic 60–76; PULSE 61–84; TEMP 97.4–99; O2SAT 73–100
[2020-06-27 04:47] LABS: ARTERIAL BLOOD GAS PCO2 41.9 mmHg (35-45); ARTERIAL BLOOD GAS pH 7.42 (7.35-7.45)
[2020-06-27 04:48] LABS: ARTERIAL BLD GAS O2 SATURATION 96.2 % (92-100); ARTERIAL BLOOD GAS BASE EXCESS 2.4 (-2-2); ARTERIAL BLOOD GAS PO2 81.3 mmHg (80-100)
[2020-06-27 05:22] LABS: MEAN CELL VOLUME 100 fl (80.0-100.0); MEAN CORPUSCULAR HGB CONC 32 g/dl (33.0-37.0); MEAN PLATELET VOLUME 9.3 fl (7.4-10.4); PLATELET COUNT 214 K/mm3 (130-400); RED BLOOD COUNT 2.82 M/mm3 (4.10-5.30); REDCELL DISTRIBUTION WIDTH-CV 13.1 % (11.5-14.5)
[2020-06-27 05:29] LABS: HEMATOCRIT 28.3 % (37.0-47.0); HEMOGLOBIN 9.1 g/dl (12.5-16.0); MEAN CORPUSCULAR HEMOGLOBIN 32 pg (27.0-31.0)
[2020-06-27 05:31] LABS: CREATININE, serum 0.59 (0.52-1.25); POTASSIUM 4.1 mmol/L (3.4-5.0)
--- NOTE | 2020-06-27 05:34 | NUR ---
ATTEMPTED WEANING PARAMETERS WITH PTS VENT SETTINGS THIS MORNING BUT SHE DID NOT BREATHE ON HER OWN. RN WILL LOWER SEDATION EVEN MORE AND WE WILL TRY AGAIN LATER.
--- NOTE | 2020-06-27 05:35 | NUR ---
Started sedation vacation at 0515. Propofol and fentanyl decreased in half. Propofol running at 5.6mls/hr and fentanyl running at 2.5mls/hr. Patient became restless with VSS but was unable to follow commands. Sedation vacation turned off at 0530.
[2020-06-27 06:18] LABS: BAND 5 % (0-10); LYMPHOCYTE 10 % (20.0-51.0); MYELOCYTE 1 % (0-0); NEUTROPHILS 81 % (42.0-75.2); PLATELET ESTIMATE NORMAL (NORMAL)
--- NOTE | 2020-06-27 10:03 | NUR ---
Associate Editor attended clinical rounds with the team and patient will not be extubated today. SW contacted patient's daughter, Shahnaz to touch base and introduce self. Shahnaz advised that Hospitalist has been keeping her updated on patient. SW will continue to follow.
--- NOTE | 2020-06-27 17:00 | NUR ---
While attempting weaning trial pt became restless and attempting to sit up. Pt moves all extremeties but will not follow commands. Pt's eyes open but not focusing on voice. Sedation increased. Will continue to monitor.
[2020-06-28] VITALS (478 sets, daily range): BP systolic 84–157; BP diastolic 42–74; PULSE 61–73; TEMP 97.7–98.8; O2SAT 72–100
[2020-06-28 04:39] LABS: ARTERIAL BLD GAS O2 SATURATION 96.5 % (92-100); ARTERIAL BLD GAS TCO2 CT 31.3; ARTERIAL BLOOD GAS BASE EXCESS 5.2 (-2-2); ARTERIAL BLOOD GAS HCO3 29.9 meq/L (22-26); ARTERIAL BLOOD GAS PO2 82.8 mmHg (80-100); ARTERIAL BLOOD GAS pH 7.44 (7.35-7.45)
[2020-06-28 05:18] LABS: MEAN CELL VOLUME 99 fl (80.0-100.0); MEAN CORPUSCULAR HGB CONC 33 g/dl (33.0-37.0); MEAN PLATELET VOLUME 8.8 fl (7.4-10.4); PLATELET COUNT 227 K/mm3 (130-400); RED BLOOD COUNT 2.93 M/mm3 (4.10-5.30); REDCELL DISTRIBUTION WIDTH-CV 12.9 % (11.5-14.5)
[2020-06-28 05:20] LABS: HEMATOCRIT 28.9 % (37.0-47.0); HEMOGLOBIN 9.4 g/dl (12.5-16.0); MEAN CORPUSCULAR HEMOGLOBIN 32 pg (27.0-31.0)
[2020-06-28 05:29] LABS: CALCIUM 8.3 mg/dL (8.4-10.2); CREATININE, serum 0.58 (0.52-1.25); POTASSIUM 3.4 mmol/L (3.4-5.0)
[2020-06-28 05:57] LABS: HYPOCHROMIA 1+; LYMPHOCYTE 21 % (20.0-51.0); MYELOCYTE 1 % (0-0); NEUTROPHILS 73 % (42.0-75.2); NUCLEATED RED BLOOD CELL 1 (0-6); PLATELET ESTIMATE NORMAL (NORMAL)
--- NOTE | 2020-06-28 06:13 | NUR ---
Patient was apnic and Xavier RT stated the patient was "apnic"
--- NOTE | 2020-06-28 06:27 | NUR ---
Patient had an uneventuful night. She is currently still sedated with propofol and fentanyl. Xavier RT and I tried conducting the breathing trial but the patient was apnic so RT stated the patient failed and resumed the vent. I will relay this to dayshift. Otherwise, the patient's vitals are stable. She is still on the tubefeeding at goal. She had one bowel movement.
--- NOTE | 2020-06-28 06:42 | NUR ---
PLACED PT ON A WEAN TRIAL AND IMMEDIATLY KICKED INTO APNEA VENTILATON. PT PLACED BACK ON DOCUMENTED SETTINGS GARETH WELL WITH NO DISTRESS NOTED AT THIS TIME
--- NOTE | 2020-06-28 17:00 | NUR ---
Dr. Griffin notified of the [facility]'s MAP being in the 50s. 1000 ml Bolus of NS orders received.
--- NOTE | 2020-06-28 21:26 | NUR ---
I recieved report from Sarah LUND. The patient's blood pressure was low, MAP high 50's and low 60's. She said the patient recieved a 1,000 L bolus of NS around 5PM. A few hours later, around 850PM the patient's blood pressure still remains low, with a MAP around 65. It was dwindling down and the MAP was 57 and I started a Levo drip, I took one last pressure as the drip was starting and the MAP was 52. I started the patient on 0.1mcg/kg/min and five minutes later the blood pressure was 149/74. I am titrating accordingly. The last blood pressure at 930pm is 108/55. All other vitals are stable and patient is resting. Propofol is at 10 mcg/kg/min and Fentanyl is 50mcg/hr.
[2020-06-29] VITALS (767 sets, daily range): BP systolic 101–168; BP diastolic 44–98; PULSE 79–120; TEMP 98–99; O2SAT 90–100
[2020-06-29 04:26] LABS: BASO % 0.4 % (0.0-2.0); EOS # 0.3 (0.0-0.7); EOS % 2.9 % (0-4.0); GRAN # 8.4 (1.4-6.5); GRAN % 75.8 % (42.2-75.2); LYMPH % 9.3 % (20.0-51.0); MEAN CELL VOLUME 102 fl (80.0-100.0); MEAN CORPUSCULAR HGB CONC 31 g/dl (33.0-37.0); MEAN PLATELET VOLUME 9.1 fl (7.4-10.4); MONO # 0.6 (0.1-0.6); MONO % 5.2 % (1.7-9.3); PLATELET COUNT 267 K/mm3 (130-400); RED BLOOD COUNT 2.95 M/mm3 (4.10-5.30)
[2020-06-29 04:28] LABS: HEMATOCRIT 30.1 % (37.0-47.0); HEMOGLOBIN 9.4 g/dl (12.5-16.0); MEAN CORPUSCULAR HEMOGLOBIN 32 pg (27.0-31.0)
[2020-06-29 04:35] LABS: CALCIUM 8.1 mg/dL (8.4-10.2); CREATININE, serum 0.64 (0.52-1.25); MAGNESIUM 2.4 mg/dL (1.6-2.3); POTASSIUM 4.3 mmol/L (3.4-5.0)
[2020-06-29 04:46] LABS: BAND 9 % (0-10); LYMPHOCYTE 15 % (20.0-51.0); NEUTROPHILS 72 % (42.0-75.2); PLATELET ESTIMATE NORMAL (NORMAL)
[2020-06-29 04:47] LABS: HYPOCHROMIA 1+; OVALOCYTES 1+
[2020-06-29 05:32] LABS: ARTERIAL BLD GAS O2 SATURATION 94.4 % (92-100); ARTERIAL BLD GAS TCO2 CT 29.1; ARTERIAL BLOOD GAS BASE EXCESS 2.1 (-2-2); ARTERIAL BLOOD GAS HCO3 27.6 meq/L (22-26); ARTERIAL BLOOD GAS PCO2 47.7 mmHg (35-45); ARTERIAL BLOOD GAS PO2 72.4 mmHg (80-100); ARTERIAL BLOOD GAS pH 7.38 (7.35-7.45)
--- NOTE | 2020-06-29 06:31 | NUR ---
At 0530 I held the propofol and fentanyl, patient is starting to wake up and get agitated. I held her hand and tried to comfort her and reorintate her. As per the orders, the breathing trial will start at 0700. Levophed is also being held as her blood pressure increased, possibly from with holding her sedation or possibly from her agitation. All vitals are stable.
--- NOTE | 2020-06-29 17:00 | NUR ---
PT HAD BEEN OFF SEDATION FROM 0530 UNTIL ABOUT 1630. WHILE OFF SEDATION PT OPENED EYES RANDOMLY AND MOVED ALL EXTREMEITES. PT DID NOT FOLLOW COMMANDS OR RESPOND TO YES/NO QUESTIONS. PT THEN BECAME RESTLESS, TACHYCARDIC AND HYPERTENSIVE. SEDATION RESTARTED. WILL CONTINUE TO MONITOR.
[2020-06-30] VITALS (624 sets, daily range): BP systolic 108–128; BP diastolic 51–60; PULSE 76–99; TEMP 98.1–99; O2SAT 92–100
[2020-06-30 04:26] LABS: MEAN CELL VOLUME 102 fl (80.0-100.0); MEAN CORPUSCULAR HGB CONC 31 g/dl (33.0-37.0); PLATELET COUNT 231 K/mm3 (130-400); RED BLOOD COUNT 2.87 M/mm3 (4.10-5.30); REDCELL DISTRIBUTION WIDTH-CV 13.1 % (11.5-14.5)
[2020-06-30 04:27] LABS: HEMATOCRIT 29.3 % (37.0-47.0); HEMOGLOBIN 9.1 g/dl (12.5-16.0); MEAN CORPUSCULAR HEMOGLOBIN 32 pg (27.0-31.0)
[2020-06-30 04:35] LABS: CALCIUM 8.3 mg/dL (8.4-10.2); CREATININE, serum 0.55 (0.52-1.25); POTASSIUM 4.1 mmol/L (3.4-5.0)
[2020-06-30 04:54] LABS: ANISOCYTOSIS 1+; BAND 1 % (0-10); LYMPHOCYTE 11 % (20.0-51.0); MICROCYTOSIS 1+; MYELOCYTE 1 % (0-0); NEUTROPHILS 86 % (42.0-75.2); PLATELET ESTIMATE NORMAL (NORMAL)
[2020-06-30 05:23] LABS: ARTERIAL BLD GAS TCO2 CT 31.3; ARTERIAL BLOOD GAS BASE EXCESS 4.9 (-2-2); ARTERIAL BLOOD GAS HCO3 29.9 meq/L (22-26); ARTERIAL BLOOD GAS PCO2 46.5 mmHg (35-45); ARTERIAL BLOOD GAS PO2 65.6 mmHg (80-100); ARTERIAL BLOOD GAS pH 7.43 (7.35-7.45)
--- NOTE | 2020-06-30 05:28 | NUR ---
Patient had an uneventful night. At 4AM I stopped her sedation and around 430 she started gagging and had a very large drooling episode. We suctioned her and cleaned her up. RT is doing morning ABG's. Patient is now calm and resting. Sedation is still off.
--- NOTE | 2020-06-30 07:15 | NUR ---
RECEIVED REPORT FROM ASHELY AMBROCIO. PT RESTING EASILY ON CURRENT VENT SETTINGS: AC, TV 380, PEEP 5, RR 15, FIO2 30%. SEDATION ON HOLD TO START WEANING TRIAL SOON TO SEE HOW PT'S MENTAL STATUS IS. RED HAT ENGINEER IN PLACE. VSS. FC PATENT AND DRAINING TO GRAVITY. TF ON HOLD.
--- NOTE | 2020-06-30 08:50 | NUR ---
PT AROUSING AND SITTING UP IN BED TRYING TO PULL OUT THE ETT. PT DOES NOT ATTEMPT TO FOLLOW COMMANDS. DR KEITH REQUESTS SEDATION TO BE RESTARTED.
--- NOTE | 2020-06-30 09:15 | NUR ---
FAMILY MEETING WITH DAUGHTER, ROGELIO AND DR KEITH, EDDIE ALCANTARA, RN AND RN DISCUSSING POC AND PT'S CURRENT STATUS. ROGELIO DOES STATE SHE DOES NOT WANT TO TRACH AND PEG PT. ROGELIO STATES HER BROTHER GIRISH IS FLYING INTO [place] TOMORROW AND WOULD LIKE TO WAIT TILL HE COMES SO HE CAN SEE THE PT BEFORE EXTUBATING. ROGELIO DOES STATE SHE THINKS THEY ARE LEAVING MORE TOWARDS COMFORT CARE AND NOT REINTUBATING IF NECESSARY BUT WILL MAKE FINAL DECISIONS TOMORROW WHEN BROTHER ARRIVES. PER DR KEITH, OK TO RESTART TF AT THIS TIME UNTIL TOMORROW WHEN DECISIONS ARE MADE.
--- NOTE | 2020-06-30 10:23 | NUR ---
Pile Driving Nozzleman followed up with Xuan, Palliative RN after family meeting which included Xuan Murphy, and patient's daughter/DPOA-HC Shahnaz. Family would not want trach/PEG for patient. Patient's son, Thierry is flying in from [place] tomorrow and is hopeful to be able to see patient. Plan is to attempt extubation possibly tomorrow and SW will continue to follow.
--- NOTE | 2020-06-30 10:59 | NUR ---
I participatied in meeting with Dr Vang, Shahnaz Flores, and Rosey LUND. Daughter is very clear that her mother would not want a trach or peg placement. Patient's son is coming from [place] on Friday and would like to visit his mother before making a final decision. Dr Vang has agreed to allow them to visit with her and then we will try to extubate if reasonable. She has not tolerated weaning trials to date fighting the vent and restraints, biting the ET tube until sedation is increased. Daughter did visit her mother at bedside today and was stroking her head and talking to her. Daughter felt that she turned her head slightly toward her. The family may want to do a video call with patient's sister in [place] if her sister is interested. I did talk about comfort measures that can be available to keep Paulette comfortable after extubation to avoid air hunger but that these would depend on their goals after the chilren talk together.
--- NOTE | 2020-06-30 13:57 | NUR ---
Grab Driver collaborated with ASHELY Currie about discharge plan. Rosey advised that patient may go comfort over the weekend depending on how extubation goes. STEFFANY contacted patient's daughter, Shahnaz who advised they would be interested in [facility] if they decide to pursue comfort. Shahnaz is agreeable to referral being sent to [facility] in case this is what the decide to do. STEFFANY contacted Dayana at [facility] and faxed referral.
--- NOTE | 2020-06-30 20:00 | NUR ---
Assessment complete. Pt on ventilator. Responsive to voice but cannot follow commands. LSC triple lumen intact. Albarran to DD is free of complications. Pt repositioned for comfort. Call light within reach.
[2020-07-01] VITALS (637 sets, daily range): BP systolic 116–144; BP diastolic 55–78; PULSE 81–92; TEMP 98.2–99; O2SAT 82–100
[2020-07-01 04:18] LABS: ARTERIAL BLD GAS O2 SATURATION 94.3 % (92-100); ARTERIAL BLD GAS TCO2 CT 29.5; ARTERIAL BLOOD GAS BASE EXCESS 4.1 (-2-2); ARTERIAL BLOOD GAS HCO3 28.2 meq/L (22-26); ARTERIAL BLOOD GAS PCO2 40.4 mmHg (35-45); ARTERIAL BLOOD GAS pH 7.46 (7.35-7.45)
[2020-07-01 06:55] LABS: BASO % 0.2 % (0.0-2.0); EOS # 0.3 (0.0-0.7); GRAN # 6.6 (1.4-6.5); LYMPH # 0.7 (1.2-3.4); LYMPH % 8.4 % (20.0-51.0); MEAN CELL VOLUME 100 fl (80.0-100.0); MEAN CORPUSCULAR HGB CONC 32 g/dl (33.0-37.0); MEAN PLATELET VOLUME 9.5 fl (7.4-10.4); MONO # 0.4 (0.1-0.6); MONO % 4.5 % (1.7-9.3); PLATELET COUNT 244 K/mm3 (130-400); RED BLOOD COUNT 2.66 M/mm3 (4.10-5.30); REDCELL DISTRIBUTION WIDTH-CV 12.8 % (11.5-14.5)
[2020-07-01 06:57] LABS: CALCIUM 8.1 mg/dL (8.4-10.2); CREATININE, serum 0.57 (0.52-1.25); POTASSIUM 3.9 mmol/L (3.4-5.0)
--- NOTE | 2020-07-01 07:00 | NUR ---
RECEIVED REPORT FROM ASHELY CHAVEZ. PT RESTING EASILY ON CURRENT VENT SETTINGS: TV 380, PEEP 5, FIO2 30, RR 15. FC PATENT AND DRAINING TO GRAVITY. LIBRARY MANAGER IN PLACE. VSS. SEE GTT FLOWSHEET.
[2020-07-01 07:02] LABS: HEMATOCRIT 26.7 % (37.0-47.0); HEMOGLOBIN 8.5 g/dl (12.5-16.0); MEAN CORPUSCULAR HEMOGLOBIN 32 pg (27.0-31.0)
--- NOTE | 2020-07-01 11:00 | NUR ---
SPOKE TO DR KEITH ABOUT POC. DISCUSSED IF CHILDREN VISIT THIS AFTERNOON AND DO DECIDE THAT THEY WOULD LIKE TO MOVE FORWARD TODAY WITH EXTUBATION AND COMFORT CARE IF HE WAS OKAY WITH THAT. PHYSICIAN STATES IT IS OKAY WITH THAT POC IF THEY WANT AND IS ALSO OKAY TO WAIT. PHYSICIAN STATES IF PT DOES GO COMFORT CARE TO CONTACT DR CUMIMNS FOR ORDERS.
--- NOTE | 2020-07-01 13:30 | NUR ---
SPOKE TO ROGELIO, DAUGHTER ABOUT POC. SHE STATES HER AND HER BROTHER WILL BE HERE AROUND 1500 TO VISIT AND PLAN TO EXTUBATE TO COMFORT CARE. DR CUMMINS NOTIFIED OF POC.
--- NOTE | 2020-07-01 17:15 | NUR ---
TF OFF AT THIS TIME IN PREPARATION FOR EXTUBATION
--- NOTE | 2020-07-01 17:48 | NUR ---
PT EXTUBATED TO COMFORT CARE PER MD ORDER. PT SUCTIONED PRE/POST EXTUBATION. PT CURRENTLY ON ROOM AIR.
--- NOTE | 2020-07-01 17:58 | NUR ---
RT AND RN AT BEDSIDE AND EXTUBATED PT. PT TOLERATED OK. SON AND DAUGHTER AT BEDSIDE. SPOKE TO MARCELLA ELMORE ABOUT OBTAINING FULL COMFORT CARE ORDERS AND TRANSFER ORDERS.
--- NOTE | 2020-07-01 20:23 | NUR ---
Patient's family wanted to know if she can be on a few liters of oxygen, her saturation was 85. I spoke to Nilda NARANJO and she spoke to the family. They still wanted her to remain on comfort care, and not reinutbated but they just wanted some oxygen. Nilda NARANJO confirmed they wanted her to remain DNR and comfort care and they agreed. Patient's saturated with 2 L nasal cannula is 92. She got transfer orders to the medical floor. Report was given to Leona LUND.
--- NOTE | 2020-07-01 20:45 | NUR ---
To room 315 via gurney from ICU. Transferred to bed with three assist. Has soiled linens-liquid paredes bowel movement-large in size. Danita care provided-bedding changed-repositioned in bed with pillow support. New orders for comfort care-family was sent home earlier in shift from ICU. Notified daughter Shahnaz that her mother had been moved to room 315 on medical floor. Went over visiting policy. Daughter with questions about whether mother will make it through the night. Discussed at length that it was very hard to tell-instructed that she could come to medical floor to be with her mother during this end of life time. Shahnaz stated she would come up and stay with her mother quin.
--- NOTE | 2020-07-01 21:30 | NUR ---
Daughter of patient arrived to room 315 at this time. Discussed comfort care and options for pain medications. Instructed on policy of staying in room with mask on while visiting during end of life. Verbalizes understanding/denies questions/concerns.
--- NOTE | 2020-07-02 02:10 | NUR ---
Daughter called to desk stating "Mom seems to be getting uncomfortable again, can she have the morphine." Patient awake in bed moving arms/head back and fourth-making noises. Repositioned in bed. Morphine given per dr order for comfort.
--- NOTE | 2020-07-02 07:00 | NUR ---
Report with ASHELY Delgadillo. Pt starting to have labored breathing with heavy gurgling. PRN Morphine administered per orders. Albarran to DD without s/s of complications. Triple lumen catheter to left subclavian without s/s of complications. O2 at 2 L/min via NC for comfort. Pt's daughter at bedside, denies further needs at this time.
--- NOTE | 2020-07-02 08:40 | NUR ---
Pt's resp heavier, slightly more labored with intermittent gurgling. PRN Roxanol administered per orders. Suction attempted with Trina but pt swallowing secretions at this time. Pt's daughter at bedside, denies further needs.
--- NOTE | 2020-07-02 11:10 | NUR ---
Pt resting with eyes closed, resp shallow, unlabored, still sounding wet. PRN Atropine 2 drops administered per orders. Pt's daughter remains at bedside, denies needs at this time.
--- NOTE | 2020-07-02 11:48 | NUR ---
Patient plans to go comfort care tomorrow with [facility] Monday 07/03. Please assist coordinating transportation for Friday.
--- NOTE | 2020-07-02 19:00 | NUR ---
Pt's son with several questions about pt's current status and how she got to this point. This nurse answers questions to the best of ability within scope of practice. Pt's son verbalizes appreciation and understanding. Note passed on to night coordinator nurse to have provider stop in if available tonight or foot gatherer tomorrow. Pt has been resting with eyes closed, resp even and unlabored, most of afternoon.
--- NOTE | 2020-07-02 21:23 | NUR ---
Patient laying in bed with eyes closed upon enter the room. Patient not responding to verbal or tactile stimulations. Breathing shallow and gurgling sound noted. PRN Atropine 2 drops given per MAR. Patient appears comfortable. No s/s of pain or discomfort. No acute distress noted. Patient's daughter and son in the room. Hot chocolate provided to family per request. Call light within reach. Family agreed to call the nurse if needs anything or any changes in condition observed. Will continue to monitor.
--- NOTE | 2020-07-03 06:20 | NUR ---
Incontinent brief changed and jesenia-care provided around 0300. Small amount of incontinent BM noted. Repositioned patient. PRN Atropine 2 drops given for increased secretions at this time. Family at bedside. Will give report to day shift nurse.
[2020-07-03] MEDS ORDERED: ISOPTO ATROPINE15 ML SL (08:59)
[2020-07-03] MEDS ORDERED: ATIVAN 1MG T1 MG/TAB PO (08:59)
[2020-07-03] MEDS ORDERED: ROXANOL 20MG20 MG/ML SL (08:59)
[2020-07-03] MEDS ORDERED: TRANSDERM-0.5 MG/21 TD (08:59)
[2020-07-03] MEDS ORDERED: IPRATROPIUM BROM3 M1 IH (08:59)
[2020-07-03] MEDS ORDERED: REFRESH TEARS 330 ML OP (08:59)
--- NOTE | 2020-07-03 09:00 | NUR ---
PALLIATIVE CARE NURSE AT BEDSIDE VISTING WITH DAUGHTER & SON.
--- NOTE | 2020-07-03 09:30 | NUR ---
AT BEDSIDE EXPLAINING PATIENT STATUS, SPECIFICALLY TO THE SON. DAUGHTER, SHAWNA AT BEDSIDE HAS BEEN AT BEDSIDE DURING THE PATIENT'S HOSPITALIZATION. SON FLEW IN ON SAT FROM [place] AND SEEMS TO BE HAVING DIFFICULTY WITH ACCEPTING THE PATIENT'S CONDITION. PATIENT HAS MANY CHRONIC CONDITION AND HAS DECLINED. SON DOESN'T WANT A TRACH, PEG TUBE OR INTUBATION BUT WANTS PATIENT TO GET TREATMENT OPTIONS (HE'S NOT SURE WHAT) HE JUST DOESN'T LIKE THE IDEA OF HOSPICE. DAUGHTER AT BEDSIDE SEEMS TO UNDERSTAND THE DIFFERENCE BETWEEN AGGRESIVE TREATMENT OR MANAGING WITH COMFORT CARES THROUGH HOSPICE. HOSPICE PLANS ARE NOW CURRENTLY ON HOLD.
--- NOTE | 2020-07-03 09:30 | NUR ---
Son was raising questions today about comfort care and why this decision was made to take her off the vent and move to [facility]. He wanted to know what has caused this, why she couldn't continue on the vent, and why we weren't still giving her antibiotics. He had arrived on 07/01 by flight into [place]. He had talked with staff, his sister and with the physicians on her case over the weekend but was really struggling with why his mother wouldn't get better. I talked with them about aspiration, that at this point is a time to switch from ET tube to trach and that the [facility], did not think that a trach and feeding tube was appropriate and in line with her mother's wishes. Dr Vang and Dr Hawkins also went in to talk with family. The decision [facility]. Comfort quilt was provided.
--- NOTE | 2020-07-03 09:53 | NUR ---
AT BEDSIDE TO NOW TALK WITH SON & DAUGHTER. HE REVIEWED PLAN, FAMILY DIDN'T WANT AGGRESIVE TREATMENT WITH TRACH OR PEG TUBE AND THUS, THE COMFORT CARE DECISION WAS MADE. DAUGHTER AGREED, THIS WAS THE PLAN. THE SON IS STILL STRUGGLING WITH HOSPICE DECISION AND ASKING ABOUT MORE ANTIBIOTICS AND ORAL SECRETIONS. PATIENT IS UNABLE TO CLEAR HE OWN SECREATIONS OR TAKE ANY ORAL MEDS OR NUTRITION. CONTINUED TO EXPLAIN THE HIGH RISK FOR ASPIRATION IF PATIENT WAS ALLOWED ORAL INTAKE. SON SEEMS TO UNDERSTANDS MOST OF THESE CONCEPTS. THE DAUGHTER ASKED ABOUT SEPSIS AND ORGAN FAILURE WHICH WAS ALSO ADDRESSED. THE SON IS CIRCLING BACK TO HIS BEGINING CONVERSATION, ASKING THE DOCTOR TO COMPARE HER PREVIOUS CONDITION TO HER HOSPITALIZED CONDITION. BOTH & DISCUSSED ONLY HER HOSPITALIZED CONDITION AND REFERED TO THE DAUGHTER (WHOM SHE LIVED WITH) ABOUT HER BASELING ACTIVITLY. SON HAS NOT BEEN BACK IN APPROX A YEAR. SON IS NOW ASKING PHYSICIANS WHAT SHE HEARS AND UNDERSTANDS. SON SEEMED SHOCKED THE PHYSICIANS WERE NOT ABLE TO TELL HIM IS SHE WAS ABLE TO UNDERSTAND.
--- NOTE | 2020-07-03 11:30 | NUR ---
PATIENT IS RESTING COMFORTABLY IN BED WITH FAMILY AT BEDSIDE. DAUGHTER DENIES NEED FOR ORAL ROXINOL AT THIS TIME. WILL MONITOR.
--- NOTE | 2020-07-03 12:54 | NUR ---
Car Retarder Operator was notified by RN, Liliya that after rounding, patient's family has decided to discharge to [facility]. STEFFANY followed up with patient's daughter/SHAWNA Christie who is in agreement. STEFFANY collaborated with Dayana at [facility] and set transport time for 1300. SW contacted [facility] who will provide transportation. STEFFANY placed completed forms on patient's chart. SW faxed discharge orders and negative COVID test to [facility]. SW provided transport time to patient's daughterShahnaz. Patient to discharge to [facility] today.
--- NOTE | 2020-07-03 13:30 | NUR ---
EMS HERE TO TRANSPORT PATIENT TO [facility]. FAMILY AT BEDSIDE. CALLED REPORT TO NURSE. INFORMATION PACKET SENT WITH EMS. PATIENT DISCHARGED.
== END 2020-07-03 13:30 | disposition hospice, inpatient (51) | DRG 870 ==
LOC: COL.ER 15:37 → ICU 20:35 → MEDICAL 07-01 21:29
PROVIDERS: Internal Medicine Pulmonary Disease; Nurse Practitioner Family; Physician Assistant; Student in an Organized Health Care Education/Training Program; ADMIT Internal Medicine
PROC: 0BH17EZ Insertion of Endotracheal Airway into Trachea, Via Natural or Artificial Opening (ICD-10-PCS; principal; 2020-06-23)
PROC: 5A1955Z Respiratory Ventilation, Greater than 96 Consecutive Hours (ICD-10-PCS; 2020-06-23)
DX: A41.9 Sepsis, unspecified organism (principal); J96.01 Acute respiratory failure with hypoxia; J18.9 Pneumonia, unspecified organism; G93.49 Other encephalopathy; E46 Unspecified protein-calorie malnutrition; R65.20 Severe sepsis without septic shock; I48.0 Paroxysmal atrial fibrillation; I10 Essential (primary) hypertension; F32.9 Major depressive disorder, single episode, unspecified; Z66 Do not resuscitate; Z51.5 Encounter for palliative care; I95.9 Hypotension, unspecified; E87.6 Hypokalemia; R73.9 Hyperglycemia, unspecified; D53.9 Nutritional anemia, unspecified; F41.9 Anxiety disorder, unspecified; F03.90 Unspecified dementia, unspecified severity, without behavioral disturbance, psychotic disturbance, mood disturbance, and anxiety; K21.9 Gastro-esophageal reflux disease without esophagitis; G89.29 Other chronic pain; M19.90 Unspecified osteoarthritis, unspecified site; Z20.822 Contact with and (suspected) exposure to COVID-19
CPT/HCPCS: 99223-AI; 99232-AI; 99233-AI; 99239; A4314; J0330; J0456; J0692; J1100; J1650; J1815; J1940; J2250; J2270; J2543; J2704; J3010; J3370; J7030; J7050; J7060; J7120; Q9967